=== PATIENT | male | born 1965 | race Asian ===

== ENCOUNTER 2020-03-01 13:20 | Emergency (ER) | payer OTHER ==
[~2020-03-01] VITALS: Ht 182.9 cm; Wt 100.7 kg
[2020-03-01 13:43] VITALS: BP_SYST 121
--- NOTE | 2020-03-01 13:49 | NUR ---
Patient triaged and placed in waiting room. VSS and patient appears in no acute distress at this time. Awaiting available bed, and MD notified of need for MSE.
--- NOTE | 2020-03-01 16:55 | NUR ---
ER Dr. GREGORY at bedside examining patient.
--- NOTE | 2020-03-01 18:11 | NUR ---
ASSUMED CARE OF PT IN BED 2, ARRACHED TO MONITO AND SIDE RAILS UP.
--- NOTE | 2020-03-01 18:12 | NUR ---
PT AAO AND AMBULATORY C/O BACK PAIN FOR THE PAST 8 DAYS. RADIOLOGY ORDERED. PT AWAITING RESULTS. PT IS RESTING QUIETLY IN NO DISTRESS.
[2020-03-01 18:22] VITALS: BP_SYST 121
--- NOTE | 2020-03-01 18:22 | NUR ---
Patient given written and verbal discharge instructions and verbalizes understanding. DR. BRI ALBARRAN MD discussed with patient the results and treatment provided. Patient in stable condition. ID arm band removed. Rx of IBUPROFEN AND POBAXIN given. Patient educated on pain management and to follow up with PMD. Pain Scale 2/10. Opportunity for questions provided and answered. Medication side effect fact sheet provided.
== END 2020-03-01 18:22 | disposition home or self-care (01) ==
LOC: SED 13:20
DX: S39.012A Strain of muscle, fascia and tendon of lower back, initial encounter (principal); M54.30 Sciatica, unspecified side; X50.9XXA Other and unspecified overexertion or strenuous movements or postures, initial encounter; Y93.66 Activity, soccer; Y92.89 Other specified places as the place of occurrence of the external cause; Y99.8 Other external cause status
CPT/HCPCS: 72100-TC; 99283

== ENCOUNTER 2020-09-01 05:05 | Emergency (ER) | payer OTHER ==
[~2020-09-01] VITALS: Ht 182.9 cm; Wt 97.5 kg
--- NOTE | 2020-09-01 05:15 | NUR ---
PT PLACED IN ED TENT
--- NOTE | 2020-09-01 05:27 | NUR ---
ED MD MCGRAW AT PT SIDE TO EVALUATE PT
[2020-09-01 05:35] VITALS: BP_SYST 147
[2020-09-01] MEDS ORDERED: DEXAMETHASONE SOD PHOSPHATE 10 MG/ML VIAL IM ONE (05:45)
[2020-09-01] MEDS ORDERED: DEXAMETHASONE SOD PHOSPHATE 10 MG/ML VIAL ONE (05:49)
[2020-09-01 07:01] VITALS: BP_SYST 140
--- NOTE | 2020-09-01 07:01 | NUR ---
Patient given written and verbal discharge instructions and verbalizes understanding. ER MD MCGRAW discussed with patient the results and treatment provided. Patient in stable condition. ID arm band removed. Patient educated on pain management and to follow up with PMD. Pain Scale 0/10. Opportunity for questions provided and answered. Medication side effect fact sheet provided.
== END 2020-09-01 07:01 | disposition home or self-care (01) ==
LOC: SED 05:05
DX: T78.3XXA Angioneurotic edema, initial encounter (principal); X58.XXXA Exposure to other specified factors, initial encounter
CPT/HCPCS: 96372; 99283; J1100